=== PATIENT | female | born 1940 | race Caucasian/White ===

== ENCOUNTER → 2018-04-29 | Outpatient (CLI) | payer MEDICARE ==
[~2018-04-29] MED LIST: ACTEMRA400 MG/20 IV; APRISO0.375 GM PO; ARMOUR THYROID60 MG PO; ASPIRIN81 MG PO; BISACODYL5 MG PO; CLONIDINE HCL0.2 MG PO; CRESTOR5 MG PO; GLUCOSAMINE1000 MG PO; HYDROCODON-ACE1 EA12 PO; HYDROXYCHLOROQ200 MG PO; ISOSORBIDE MONO30 MG PO; LASIX20 MG PO; METHYLDOPA250 MG PO; MIRALAX17 GM PO; MUCINEX DM ER1 EACH PO; NITROSTAT0.4 MG SL; NORVASC5 MG PO; OMEGA 3 1,0001 EACH PO; PAXIL20 MG PO; PLAVIX75 MG PO; RANEXA500 MG PO; REGADENOSON 0.4 MG/5 ML SYR IV ONE; VITAMIN D10000 UNIT PO; ZESTRIL20 MG PO
--- NOTE | 2018-04-30 14:14 | Cardiology Report ---
DATE OF STUDY: April 29, 2018 NUCLEAR GATED MYOCARDIAL PERFUSION SCAN Nuclear gated myocardial perfusion scan was performed as per protocol at [facility]. The stress test was supervised by Dr. Valeriano Diaz. I read only the nuclear part of the stress test. This is Lexiscan protocol. Lexiscan was injected 0.4 mg intravenously as a stress agent. IMPRESSION 1. No evidence of ischemia or scar noted. 2. Left ventricular ejection fraction is 60%. No wall-motion abnormality noted. 3. Normal gated myocardial perfusion scan with no ischemia or scar. 4. Normal study. Job#: [id number]
== END ==
LOC: NM 09:52
PROVIDERS: ATTEND Internal Medicine Cardiovascular Disease
DX: I25.119 Atherosclerotic heart disease of native coronary artery with unspecified angina pectoris (principal); R07.9 Chest pain, unspecified; R06.02 Shortness of breath; R94.31 Abnormal electrocardiogram [ECG] [EKG]
CPT/HCPCS: 78452; 93017; A9502

== ENCOUNTER → 2018-07-17 | Outpatient (CLI) | payer MEDICARE ==
[~2018-07-17] MED LIST changes: -REGADENOSON 0.4 MG/5 ML SYR IV ONE
--- NOTE | 2018-07-18 08:22 | Diagnostic Imaging Report ---
Exam: Lumbar spine CT without IV contrast History: Low back pain, prior surgery. Comparison studies: None Technique: Axial images were obtained through the lumbar spine. Coronal and sagittal images reconstructed from the axial data. Dose modulation, iterative reconstruction, and/or weight based adjustment of the mA/kV was utilized to reduce the radiation dose to as low as reasonably achievable. Intravenous contrast: None Findings: Number of non-rib bearing vertebral bodies: 5 Alignment: Lumbar curvature convex to the left centered at L3-L4. Lumbar lordotic curvature is maintained. Soft tissues: Chronic postsurgical changes in the dorsal lumbar and upper sacral soft tissues Paraspinal muscles: Moderate cement atrophy from L4 into the sacrum. Sacroiliac joints: Mild degenerative changes bilaterally with periarticular sclerosis. Defect in the right iliac bone presumably related to previous bone graft arteries. Vertebrae: No acute fractures, infection or neoplasm. Chronic L1 vertebral body compression fracture with plana deformity and bone cement related to previous vertebral body augmentation. There is retropulsion is 8.6 mm retropulsion of the superior vertebral body which results in moderate canal stenosis. The anterior L1 vertebral body is anteriorly displaced by 12 mm. Surgical changes: Posterior instrumented L3-S1 fusion with bilateral transpedicular screws from L3 to L5 and transsacral screws at S1 without evidence of hardware failure or hardware loosening. There is solid posterior lateral osseous fusion. Per provided history there are discectomies at L3-L4 and at L5-S1. Degenerative changes: T11-T12: Mildly degenerated disc with vacuum phenomenon. Disc bulge and facet arthrosis with mild bilateral foraminal stenosis. No significant canal stenosis. T12-L1: Degenerated disc with vacuum phenomenon. Retropulsed L1 vertebral fragment with disc bulge and mild facet arthrosis with moderate canal stenosis and moderate left and mild right foraminal stenosis. L1-L2: Moderately degenerated disc with vacuum phenomenon. Disc bulge with left foraminal disc osteophyte complex and facet arthrosis with mild canal stenosis and severe left and moderate right foraminal stenosis. L2-L3: Moderately degenerated disc with vacuum phenomenon. Disc osteophyte complex and facet arthrosis with moderate to severe bilateral foraminal stenosis. L3-L4: Severely degenerated disc with disc calcification an presumably discectomy changes. Asymmetric left disc osteophyte complex and mild right foraminal stenosis. Patent left foramen. Canal decompressed by laminectomies. L4-L5: Moderately degenerated disc with disc calcification. Patent canal and foramina. L5-S1: Moderately degenerated disc. Left foraminal disc osteophyte complex and hypertrophic changes at the left facet with moderate left foraminal stenosis. Patent canal and right foramen. Additional findings: Scattered calcified atherosclerosis throughout the tortuous abdominal aorta and splenic artery. Punctate splenic calcifications which may be sequela of previous granulomatous infection/information IMPRESSION: 1. Chronic L1 compression fracture status post augmentation with plana deformity and retropulsion which results in moderate canal stenosis. 2. Lumbar curvature convex to the left. 3. Surgical changes with laminotomies and posterior fusion from L3 to S1. 4. Advanced multilevel disc degeneration. 5. Multilevel foraminal stenosis (moderate left at T12-L1, severe left and moderate right at L1-L2, moderate-severe bilaterally at L2-L3 and moderate left L5-S1. Signed by: Dr. Bandar Dawson M.D. on 07/18/2018 8:18 AM
== END ==
LOC: CT 14:03
PROVIDERS: ATTEND Student in an Organized Health Care Education/Training Program
DX: M06.09 Rheumatoid arthritis without rheumatoid factor, multiple sites (principal)
CPT/HCPCS: 72131

== ENCOUNTER → 2020-06-30 | Day surgery (SDC) | payer MEDICARE, OTHER ==
[2020-06-25 13:46] LABS: BASOPHILS % 0.7 % (0.0-1.0); EOSINOPHILS # (AUTO) 0.4 (0.0-0.4); EOSINOPHILS % 6.1 % (0.0-6.0); HEMATOCRIT 33.8 % (34.2-44.1); HEMOGLOBIN 11.3 g/dL (12.0-16.0); LYMPHOCYTES # (AUTO) 2.5 (1.0-3.2); LYMPHOCYTES % 43.2 % (18.0-39.1); MEAN CORPUSCULAR HEMOGLOBIN 29.4 pg (28-32); MEAN CORPUSCULAR HGB CONC 33.4 g/dL (31-35); MONOCYTES # (AUTO) 0.7 (0.2-0.8); MONOCYTES % 11.4 % (4.4-11.3); NEUTROPHILS # (AUTO) 2.3 (2.1-6.9); NEUTROPHILS % 38.4 % (38.7-80.0); PLATELET COUNT 201 x10e3/uL (140-360); RED BLOOD COUNT 3.84 x10e6/uL (3.6-5.1); RED CELL DISTRIBUTION WIDTH 13.2 % (11.7-14.4)
[2020-06-25 14:06] LABS: ALBUMIN 3.7 g/dL (3.5-5.0); ALBUMIN/GLOBULIN RATIO 1.1 (0.8-2.0); CALCIUM 9.4 mg/dL (8.4-10.2); CREATININE, SERUM 1.12 mg/dL (0.57-1.11)
--- NOTE | 2020-06-25 14:39 | Diagnostic Imaging Report ---
EXAMINATION: CHEST 2 VIEWS INDICATION: ^PRE OP COMPARISON: CT scan 07/17/2018 FINDINGS: TUBES and LINES: Right anterior chest cardiac device. LUNGS: Lungs are well inflated. Mild chronic appearing changes in the lungs. No focal consolidation. PLEURA: No pleural effusion or pneumothorax. HEART AND MEDIASTINUM: The cardiomediastinal silhouette is unremarkable. BONES AND SOFT TISSUES: No acute osseous lesion. Soft tissues are unremarkable. Surgical hardware over the lumbar spine. Chronic appearing fracture deformity involving one of the upper lumbar vertebral bodies. UPPER ABDOMEN: No free air under the diaphragm. IMPRESSION: No acute thoracic abnormality. Signed by: Dr. Monster You M.D. on 06/25/2020 2:35 PM
[~2020-06-30] MED LIST changes: +ALENDRONATE SOD70 MG PO; +B&O 60MG R/S 60 MG SUPP PR ONE; +BUMETANIDE0.5 MG PO; +CALCIUM PO; +CEFAZOLIN SOD 1 GM/NS 50ML 100 ML IV ONE; +CENTRUM SILVER1 EAC3 PO; +CEPHALEXIN500 MG PO; +CLOTRIMAZOLE-BE15 GM TOP; +COQ-10100 MG PO; +DEXAMETHASONE SOD PHOS INJ 4 MG/ML VIAL ONE; +FENTANYL CITRATE/PF 100MCG/2 ML INJ ONE; +FLOMAX0.4 MG PO; +HYDRALAZINE HCL 20 MG/ML VIAL ONE; +IOPAMIDOL 300MG/ML 50ML INFUS..BTL IV ONE; +KETAMINE HCL INJ 50 MG/ML 10 ML VIAL ONE; +LABETALOL HCL100 MG PO; +LEVOTHYROXINE75 MCG PO; +LIDOCAINE HCL 2% LOCAL INJ 5 ML SDV VIAL INJ ONE; +ONDANSETRON HCL INJ 2MG/ML 2ML 2 MG/ML VIAL ONE; +PRAVACHOL20 MG PO; +PROLIA60 MG/1 ML IN; +PROPOFOL IV EMULSION 10 MG/ML 20 ML VIAL ONE; +SEVOFLURANE INHAL SOLN 250 ML PEN BTL ONE; +ULTRACET TABLE1 EACH PO; +VERAPAMIL ER120 MG PO; +potassium PO
--- NOTE | 2020-06-30 15:30 | Diagnostic Imaging Report ---
Examination: Fluoroscopic retrograde pyelogram History: Concern for ureteral stricture. Dose: Fluoroscopy time: 21 seconds Air Karma: 7.13 mGy Discussion: Initial kitchen help handyman image demonstrates a cystoscope within the urinary bladder initially the right ureter is cannulated which demonstrates no significant stricture with contrast opacifying the right renal collecting system. Next the left ureter is cannulated which is also negative for high-grade ureteral stricture. Delayed image demonstrates appropriate emptying of contrast from the bilateral renal collecting systems. IMPRESSION: No fluoroscopic evidence of ureteral stricture or obstruction. Please see operative report for further details. Signed by: Russ Roy MD on 06/30/2020 3:27 PM
[2020-06-30 15:35] VITALS: BP 171/91
--- NOTE | 2020-06-30 16:28 | Operative Report ---
DATE OF PROCEDURE: 06/30/2020 SURGEON: Landon Barrett MD PREOPERATIVE DIAGNOSES: Chronic urinary tract infection, microscopic hematuria, bladder lesion. POSTOPERATIVE DIAGNOSES: Urethral stenosis, intrinsic sphincter deficiency, bladder lesion, cystitis cystica, and urethral stenosis. 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 OPERATIONS PERFORMED: Urethral dilatation, cystourethroscopy, bilateral retrograde pyelogram, bladder hydrodistention, multiple bladder biopsies, and fulguration. Examination under anesthesia. FINDINGS: The patient has atrophic vaginitis and introital stenosis allowing only one finger. The patient does not have a cystocele. 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 The bladder showed signs of cystitis cystica. There were two lesions velvety red in her bladder above the trigone and to the right side of the bladder, this were biopsied. Ureteral orifices were normal position with clear efflux was seen bilaterally. Bladder capacity was 300 mL. An x-ray does show hardware in her lumbar spine compatible with Mcconnell rods. Retrograde pyelogram showed no filling defects. No hydroureteronephrosis. PROCEDURE IN DETAIL: With the patient under satisfactory general anesthesia, she was placed in the supine position on the operating table. Legs were placed on stirrups. Genitalia was prepped with pHisoHex, and draped in the usual manner. At this point, urethral dilators were used to size 24. Cystoscopy was performed as above and findings as dictated above. #8 cone-tip ureteral catheter was used to inject contrast media up to both ureters, filling of both kidneys. Findings as dictated above. Further report dictated by the radiologist. At this point, hydrodistention was performed and a capacity of 300 mL was identified with glomerulation, petechiae formation, cascading of blood, has bleeding of the bladder mucosa compatible with interstitial cystitis. Biopsies of the lesions were obtain, these were sent separate from two of the biopsies and other areas of the bladder, and they were labeled to count mast cells. After that, Bugbee electrode was used to fulgurate biopsy sites. After that, a Jerry catheter was placed in the bladder left indwelling. The bladder was irrigated. Clots were removed. B and O suppository were placed in the rectum. The patient was taken to recovery room in satisfactory condition at that point. She was sent home on Cipro and Ditropan. She will be given a large slip bag and overnight bag. Continue all her medications except aspirin and Plavix. She may continue those medicines . She will be seen in the office tomorrow and a Jerry catheter be removed. I discussed the case with her daughter. MD ALEX Gill/KAYLA /[id number]
== END | disposition home or self-care (01) ==
LOC: OR 11:30
PROVIDERS: ATTEND Urology
DX: N30.30 Trigonitis without hematuria (principal); N35.92 Unspecified urethral stricture, female; N36.42 Intrinsic sphincter deficiency (ISD); N30.80 Other cystitis without hematuria; N95.2 Postmenopausal atrophic vaginitis; I25.10 Atherosclerotic heart disease of native coronary artery without angina pectoris; I10 Essential (primary) hypertension; E78.5 Hyperlipidemia, unspecified; K21.9 Gastro-esophageal reflux disease without esophagitis; F41.9 Anxiety disorder, unspecified; Z01.810 Encounter for preprocedural cardiovascular examination; Z01.812 Encounter for preprocedural laboratory examination; Z01.818 Encounter for other preprocedural examination; Z11.59 Encounter for screening for other viral diseases; Z79.02 Long term (current) use of antithrombotics/antiplatelets; Z79.82 Long term (current) use of aspirin; Z87.01 Personal history of pneumonia (recurrent); Z95.0 Presence of cardiac pacemaker
CPT/HCPCS: 36415; 52005; 52214; 71046; 74420; 80053; 85025; 88305; 88313; 93005; C1758 ×2; J0360; J0690; J1100; J2001; J2405; J2704; J3010; Q9967; U0002

== ENCOUNTER → 2022-01-13 | Outpatient (CLI) | payer MEDICARE ==
[~2022-01-13] MED LIST changes: -B&O 60MG R/S 60 MG SUPP PR ONE; -CEFAZOLIN SOD 1 GM/NS 50ML 100 ML IV ONE; -DEXAMETHASONE SOD PHOS INJ 4 MG/ML VIAL ONE; -FENTANYL CITRATE/PF 100MCG/2 ML INJ ONE; -HYDRALAZINE HCL 20 MG/ML VIAL ONE; -IOPAMIDOL 300MG/ML 50ML INFUS..BTL IV ONE; -KETAMINE HCL INJ 50 MG/ML 10 ML VIAL ONE; -LIDOCAINE HCL 2% LOCAL INJ 5 ML SDV VIAL INJ ONE; -ONDANSETRON HCL INJ 2MG/ML 2ML 2 MG/ML VIAL ONE; -PROPOFOL IV EMULSION 10 MG/ML 20 ML VIAL ONE; -SEVOFLURANE INHAL SOLN 250 ML PEN BTL ONE
== END ==
LOC: US 10:11
PROVIDERS: ATTEND Internal Medicine Nephrology
DX: N18.31 Chronic kidney disease, stage 3a (principal)
CPT/HCPCS: 76770; 76857

== ENCOUNTER 2022-08-10 17:56 | Inpatient (IN) | payer MEDICARE ==
[~2022-08-10] VITALS: Ht 160 cm; Wt 80.7 kg
[2022-08-10 18:45] LABS: BASOPHILS % 0.5 % (0.0-1.0); EOSINOPHILS # (AUTO) 0.3 (0.0-0.4); HEMATOCRIT 34.9 % (34.2-44.1); HEMOGLOBIN 11.5 g/dL (12.0-16.0); LYMPHOCYTES # (AUTO) 1.2 (1.0-3.2); LYMPHOCYTES % 14.3 % (18.0-39.1); MEAN CORPUSCULAR HEMOGLOBIN 29.7 pg (28-32); MEAN CORPUSCULAR VOLUME 90.2 fL (81-99); MONOCYTES # (AUTO) 0.6 (0.2-0.8); MONOCYTES % 7.5 % (4.4-11.3); NEUTROPHILS # (AUTO) 6.3 (2.1-6.9); NEUTROPHILS % 74.2 % (38.7-80.0); PLATELET COUNT 244 x10e3/uL (140-360); RED BLOOD COUNT 3.87 x10e6/uL (3.6-5.1); RED CELL DISTRIBUTION WIDTH 12.3 % (11.7-14.4)
[2022-08-10 19:17] LABS: ALBUMIN 4.2 g/dL (3.5-5.0); ALBUMIN/GLOBULIN RATIO 1.1 (0.8-2.0); ANION GAP 18.9 mmol/L (8-16); CALCIUM 9.9 mg/dL (8.4-10.2); CREATININE, SERUM 1.31 mg/dL (0.57-1.11); POTASSIUM 3.9 mmol/L (3.5-5.1)
[2022-08-10] MEDS ORDERED: SODIUM CHLORIDE 0.9% 500ML 500 ML ONE (20:05)
[2022-08-10] MEDS ORDERED: SODIUM CHLORIDE 0.9% 100 ML ONE (20:07)
[2022-08-10] MEDS ORDERED: IOPAMIDOL 370 MG/ML 100 ML INFUS..BTL INJ ONE (20:08)
[2022-08-10 21:27] LABS: CLARITY,URINE CLEAR (CLEAR); COLOR,URINE YELLOW (YELLOW)
[2022-08-10 21:28] LABS: KETONES,URINE NEGATIVE (NEGATIVE); LEUKOCYTE ESTERASE ,URINE NEGATIVE (NEGATIVE); NITRITE,URINE NEGATIVE (NEGATIVE); PROTEIN,URINE DIPSTICK NEGATIVE (NEGATIVE); URINE UROBILINOGEN 0.2 mg/dL (0.2 - 1)
[2022-08-10 21:31] LABS: BACTERIA,URINE RARE /HPF; EPITHELIAL CELLS,URINE MODERATE /LPF; WBC,URINE (MAN) 0-5 /HPF (0-5)
[2022-08-10] MEDS ORDERED: Morphine 4mg INJECTION 4 MG/ML INJ IV PRN (21:45)
[2022-08-10] MEDS ORDERED: SODIUM CHLORIDE 0.9% 1000ML 1,000 ML IV SCH (21:45)
[2022-08-11] VITALS (7 sets, daily range): BP systolic 174–189; BP diastolic 80–99
[2022-08-11] MEDS: SODIUM CHLORIDE 0.9% 1000ML 1,000 ML IV SCH ×3 (03:32→19:45)
[2022-08-11] MEDS ORDERED: LEVETIRACETAM500 MG PO (04:23)
[2022-08-11] MEDS ORDERED: FUROSEMIDE40 MG PO ×2 (04:23→04:32)
[2022-08-11] MEDS ORDERED: ELIQUIS5 MG PO (04:23)
[2022-08-11] MEDS ORDERED: HYDRALAZINE HC100 MG PO (04:23)
[2022-08-11] MEDS ORDERED: URIBEL CAPSULE1 EACH PO (04:23)
[2022-08-11] MEDS ORDERED: METHENAMINE HIPP1 GM PO (04:23)
[2022-08-11] MEDS ORDERED: ULTRAM 50MG50 MG PO (04:23)
[2022-08-11] MEDS ORDERED: LACTULOSE10 GM/151 PO (04:23)
[2022-08-11] MEDS ORDERED: MECLIZINE HCL12.5 MG PO (04:29)
[2022-08-11] MEDS ORDERED: ONDANSETRON ODT4 MG PO (04:30)
[2022-08-11] MEDS ORDERED: MELATONIN3 MG PO (04:31)
[2022-08-11 06:59] LABS: BASOPHILS # (AUTO) 0.1 (0.0-0.1); BASOPHILS % 0.7 % (0.0-1.0); EOSINOPHILS # (AUTO) 0.3 (0.0-0.4); HEMATOCRIT 31.5 % (34.2-44.1); HEMOGLOBIN 10.9 g/dL (12.0-16.0); LYMPHOCYTES # (AUTO) 1.5 (1.0-3.2); MEAN CORPUSCULAR HEMOGLOBIN 29.9 pg (28-32); MEAN CORPUSCULAR HGB CONC 34.6 g/dL (31-35); MEAN CORPUSCULAR VOLUME 86.5 fL (81-99); MONOCYTES # (AUTO) 0.8 (0.2-0.8); MONOCYTES % 9.5 % (4.4-11.3); NEUTROPHILS # (AUTO) 5.7 (2.1-6.9); NEUTROPHILS % 68.6 % (38.7-80.0); PLATELET COUNT 224 x10e3/uL (140-360); RED BLOOD COUNT 3.64 x10e6/uL (3.6-5.1); RED CELL DISTRIBUTION WIDTH 12.4 % (11.7-14.4)
[2022-08-11 07:26] LABS: ALBUMIN 3.6 g/dL (3.5-5.0); ANION GAP 14.5 mmol/L (8-16); CALCIUM 9.1 mg/dL (8.4-10.2); CREATININE, SERUM 1.2 mg/dL (0.57-1.11); POTASSIUM 3.5 mmol/L (3.5-5.1)
[2022-08-11] MEDS ORDERED: SALINE NOSE SPR45 ML INH (11:58)
[2022-08-11] MEDS ORDERED: BENEFIBER144 GM PO (11:58)
[2022-08-11] MEDS ORDERED: ACETAMINOPHEN325 M1 PO (11:58)
[2022-08-11] MEDS ORDERED: AMPICILLIN PO (11:58)
[2022-08-11] MEDS ORDERED: VITAMIN D PO (11:58)
[2022-08-11] MEDS ORDERED: MULTIVITAMIN W PO (11:58)
[2022-08-11] MEDS: DOCUSATE SODIUM 100 MG CAP PO SCH (13:08)
[2022-08-11] MEDS: SENNOSIDES 8.6 MG TAB PO SCH (13:08)
[2022-08-11] MEDS: HYDRALAZINE HCL 20 MG/ML VIAL IV PRN ×2 (15:37→20:49)
[2022-08-11 16:58] LABS: HEMATOCRIT 36.3 % (34.2-44.1)
[2022-08-11] MEDS: ONDANSETRON HCL INJ 2MG/ML 2ML 2 MG/ML VIAL IV PRN (22:59)
[2022-08-12] VITALS (8 sets, daily range): BP systolic 157–189; BP diastolic 80–96
[2022-08-12] MEDS ORDERED: MELATONIN 3 MG TAB PO PRN (01:45)
[2022-08-12] MEDS: SODIUM CHLORIDE 0.9% 1000ML 1,000 ML IV SCH ×3 (03:15→19:15)
[2022-08-12] MEDS ORDERED: BISACODYL 5 MG TAB EC PO ONE ×3 (05:00→06:00)
[2022-08-12] MEDS: HYDRALAZINE HCL 20 MG/ML VIAL IV PRN ×2 (05:45→18:01)
[2022-08-12 06:34] LABS: HEMOGLOBIN 12.1 g/dL (12.0-16.0)
[2022-08-12 06:37] LABS: BASOPHILS % 0.4 % (0.0-1.0); EOSINOPHILS # (AUTO) 0.1 (0.0-0.4); EOSINOPHILS % 1.5 % (0.0-6.0); LYMPHOCYTES # (AUTO) 1.3 (1.0-3.2); LYMPHOCYTES % 13.6 % (18.0-39.1); MEAN CORPUSCULAR HEMOGLOBIN 30.7 pg (28-32); MEAN CORPUSCULAR HGB CONC 34.3 g/dL (31-35); MEAN CORPUSCULAR VOLUME 89.5 fL (81-99); MONOCYTES # (AUTO) 0.7 (0.2-0.8); MONOCYTES % 7.3 % (4.4-11.3); NEUTROPHILS # (AUTO) 7.2 (2.1-6.9); NEUTROPHILS % 76.7 % (38.7-80.0); PLATELET COUNT 230 x10e3/uL (140-360); RED BLOOD COUNT 3.91 x10e6/uL (3.6-5.1); RED CELL DISTRIBUTION WIDTH 12.9 % (11.7-14.4)
[2022-08-12] MEDS: ACETAMINOPHEN 325 MG TAB PO PRN (06:44)
[2022-08-12] MEDS: ONDANSETRON HCL INJ 2MG/ML 2ML 2 MG/ML VIAL IV PRN (06:45)
[2022-08-12 07:20] LABS: ALBUMIN 3.5 g/dL (3.5-5.0); ANION GAP 15.2 mmol/L (8-16); CALCIUM 8.8 mg/dL (8.4-10.2); CREATININE, SERUM 0.98 mg/dL (0.57-1.11); MAGNESIUM 2.2 MG/DL (1.3-2.1); POTASSIUM 4.2 mmol/L (3.5-5.1)
[2022-08-12 07:39] LABS: FERRITIN 114.18 ng/mL (4.63-204.00); THYROID STIMULATING HORMONE 0.89 uIU/mL (0.350-4.940)
[2022-08-12] MEDS ORDERED: PEG (High)/E-LYTE SOLN 4,000 ML BTL PO ONE (08:00)
[2022-08-12] MEDS: DOCUSATE SODIUM 100 MG CAP PO SCH (09:14)
[2022-08-12] MEDS: SENNOSIDES 8.6 MG TAB PO SCH (09:14)
[2022-08-12] MEDS ORDERED: HYOSCYAMINE SULFATE 0.5 MG/ML INJ ONE (16:38)
[2022-08-13] VITALS (8 sets, daily range): BP systolic 147–201; BP diastolic 68–86
[2022-08-13] MEDS: SODIUM CHLORIDE 0.9% 1000ML 1,000 ML IV SCH ×2 (03:15→11:50)
[2022-08-13] MEDS: HYDRALAZINE HCL 20 MG/ML VIAL IV PRN (05:48)
[2022-08-13 06:13] LABS: BASOPHILS % 0.4 % (0.0-1.0); EOSINOPHILS # (AUTO) 0.2 (0.0-0.4); EOSINOPHILS % 2.3 % (0.0-6.0); HEMATOCRIT 36.8 % (34.2-44.1); HEMOGLOBIN 11.7 g/dL (12.0-16.0); LYMPHOCYTES # (AUTO) 1.6 (1.0-3.2); LYMPHOCYTES % 17.5 % (18.0-39.1); MEAN CORPUSCULAR HEMOGLOBIN 29.6 pg (28-32); MEAN CORPUSCULAR HGB CONC 31.8 g/dL (31-35); MEAN CORPUSCULAR VOLUME 93.2 fL (81-99); MONOCYTES # (AUTO) 0.8 (0.2-0.8); MONOCYTES % 8.7 % (4.4-11.3); NEUTROPHILS # (AUTO) 6.4 (2.1-6.9); NEUTROPHILS % 70.7 % (38.7-80.0); PLATELET COUNT 240 x10e3/uL (140-360); RED BLOOD COUNT 3.95 x10e6/uL (3.6-5.1); RED CELL DISTRIBUTION WIDTH 12.4 % (11.7-14.4)
[2022-08-13 06:34] LABS: ALBUMIN 3.4 g/dL (3.5-5.0); ALBUMIN/GLOBULIN RATIO 0.9 (0.8-2.0); ANION GAP 15.1 mmol/L (8-16); CALCIUM 8.9 mg/dL (8.4-10.2); CREATININE, SERUM 0.91 mg/dL (0.57-1.11); POTASSIUM 3.1 mmol/L (3.5-5.1)
[2022-08-13] MEDS: SENNOSIDES 8.6 MG TAB PO SCH (09:18)
[2022-08-13] MEDS: DOCUSATE SODIUM 100 MG CAP PO SCH (09:18)
[2022-08-13] MEDS ORDERED: LABETALOL HCL 100 MG TAB PO PRN (11:15)
[2022-08-13] MEDS ORDERED: APIXABAN 5 MG TABLET PO SCH (11:15)
[2022-08-13] MEDS ORDERED: MECLIZINE HCL 12.5 MG TAB PO PRN (11:15)
[2022-08-13] MEDS ORDERED: POTASSIUM CHLORIDE 20 MEQ TAB CR PO NR (11:45)
[2022-08-13] MEDS: LEVETIRACETAM 500 MG TAB PO SCH ×2 (11:50→22:04)
[2022-08-13] MEDS: ISOSORBIDE MONONITRATE 20 MG TAB PO SCH (11:52)
[2022-08-13] MEDS: HYDRALAZINE HCL 100 MG TABLET PO SCH ×2 (14:49→22:04)
[2022-08-13 16:50] LABS: HEMATOCRIT 36.1 % (34.2-44.1); HEMOGLOBIN 11.6 g/dL (12.0-16.0)
[2022-08-13] MEDS: MELATONIN 3 MG TAB PO SCH (22:03)
[2022-08-13] MEDS: PRAVASTATIN 20 MG TAB PO SCH (22:03)
[2022-08-13] MEDS: PAROXETINE HCL 20 MG TAB PO SCH (22:04)
[2022-08-13] MEDS: TAMSULOSIN HCL 0.4 MG CAP PO SCH (22:04)
[2022-08-14] VITALS (9 sets, daily range): BP systolic 142–188; BP diastolic 72–87
[2022-08-14] MEDS: SODIUM CHLORIDE 0.9% 1000ML 1,000 ML IV SCH ×2 (03:15→03:54)
[2022-08-14 05:21] LABS: HEMATOCRIT 32.9 % (34.2-44.1); HEMOGLOBIN 11.1 g/dL (12.0-16.0); MEAN CORPUSCULAR HEMOGLOBIN 29.6 pg (28-32); MEAN CORPUSCULAR VOLUME 87.7 fL (81-99); RED BLOOD COUNT 3.75 x10e6/uL (3.6-5.1)
[2022-08-14 05:22] LABS: BASOPHILS % 0.4 % (0.0-1.0); EOSINOPHILS # (AUTO) 0.4 (0.0-0.4); EOSINOPHILS % 3.9 % (0.0-6.0); LYMPHOCYTES # (AUTO) 1.7 (1.0-3.2); LYMPHOCYTES % 18.4 % (18.0-39.1); MEAN CORPUSCULAR HGB CONC 33.7 g/dL (31-35); MONOCYTES # (AUTO) 0.7 (0.2-0.8); MONOCYTES % 8.1 % (4.4-11.3); NEUTROPHILS # (AUTO) 6.3 (2.1-6.9); NEUTROPHILS % 68.9 % (38.7-80.0); PLATELET COUNT 206 x10e3/uL (140-360); RED CELL DISTRIBUTION WIDTH 12.8 % (11.7-14.4)
[2022-08-14 05:51] LABS: ANION GAP 15.3 mmol/L (8-16); CALCIUM 8.6 mg/dL (8.4-10.2); CREATININE, SERUM 0.85 mg/dL (0.57-1.11); MAGNESIUM 2.5 MG/DL (1.3-2.1); POTASSIUM 3.3 mmol/L (3.5-5.1)
[2022-08-14] MEDS: HYDRALAZINE HCL 100 MG TABLET PO SCH ×3 (06:07→21:38)
[2022-08-14] MEDS: LEVOTHYROXINE SODIUM 125 MCG TAB PO SCH (06:07)
[2022-08-14 07:10] LABS: CLARITY,URINE CLOUDY (CLEAR); COLOR,URINE GREEN (YELLOW); KETONES,URINE TRACE (NEGATIVE); LEUKOCYTE ESTERASE ,URINE LARGE (NEGATIVE); NITRITE,URINE POSITIVE (NEGATIVE); PROTEIN,URINE DIPSTICK >=300 (NEGATIVE); URINE UROBILINOGEN 1 mg/dL (0.2 - 1)
[2022-08-14 07:37] LABS: BACTERIA,URINE MANY /HPF; EPITHELIAL CELLS,URINE MODERATE /LPF; RBC,URINE >50 /HPF (0-5); WBC,URINE (MAN) >50 /HPF (0-5)
[2022-08-14] MEDS ORDERED: POTASSIUM CHLORIDE 20 MEQ TAB CR PO STA (08:04)
[2022-08-14] MEDS ORDERED: CLOPIDOGREL BISULFATE 75 MG TAB PO SCH (09:00)
[2022-08-14] MEDS: ISOSORBIDE MONONITRATE 20 MG TAB PO SCH (09:33)
[2022-08-14] MEDS: DOCUSATE SODIUM 100 MG CAP PO SCH (09:33)
[2022-08-14] MEDS: SENNOSIDES 8.6 MG TAB PO SCH (09:34)
[2022-08-14] MEDS: FUROSEMIDE 40 MG TAB PO SCH (09:34)
[2022-08-14] MEDS: LEVETIRACETAM 500 MG TAB PO SCH ×2 (09:34→21:38)
[2022-08-14] MEDS: HYDRALAZINE HCL 20 MG/ML VIAL IV PRN (09:51)
[2022-08-14] MEDS ORDERED: POTASSIUM CHLORIDE 20 MEQ TAB CR PO ONE (10:30)
[2022-08-14] MEDS: TAMSULOSIN HCL 0.4 MG CAP PO SCH (21:37)
[2022-08-14] MEDS: MELATONIN 3 MG TAB PO SCH (21:37)
[2022-08-14] MEDS: PRAVASTATIN 20 MG TAB PO SCH (21:37)
[2022-08-14] MEDS: PAROXETINE HCL 20 MG TAB PO SCH (21:38)
[2022-08-15] VITALS (8 sets, daily range): BP systolic 139–176; BP diastolic 76–90
[2022-08-15] MEDS: LEVOTHYROXINE SODIUM 125 MCG TAB PO SCH (05:12)
[2022-08-15] MEDS: HYDRALAZINE HCL 100 MG TABLET PO SCH ×3 (05:13→22:31)
[2022-08-15 06:10] LABS: BASOPHILS # (AUTO) 0.1 (0.0-0.1); BASOPHILS % 0.6 % (0.0-1.0); EOSINOPHILS # (AUTO) 0.4 (0.0-0.4); EOSINOPHILS % 5.5 % (0.0-6.0); HEMATOCRIT 33.8 % (34.2-44.1); HEMOGLOBIN 11.7 g/dL (12.0-16.0); LYMPHOCYTES # (AUTO) 1.6 (1.0-3.2); LYMPHOCYTES % 19.7 % (18.0-39.1); MEAN CORPUSCULAR HEMOGLOBIN 30.4 pg (28-32); MEAN CORPUSCULAR HGB CONC 34.6 g/dL (31-35); MEAN CORPUSCULAR VOLUME 87.8 fL (81-99); MONOCYTES # (AUTO) 0.7 (0.2-0.8); MONOCYTES % 8.7 % (4.4-11.3); NEUTROPHILS # (AUTO) 5.1 (2.1-6.9); NEUTROPHILS % 65.1 % (38.7-80.0); PLATELET COUNT 220 x10e3/uL (140-360); RED BLOOD COUNT 3.85 x10e6/uL (3.6-5.1); RED CELL DISTRIBUTION WIDTH 12.8 % (11.7-14.4)
[2022-08-15 06:36] LABS: ANION GAP 12.9 mmol/L (8-16); CALCIUM 8.6 mg/dL (8.4-10.2); CREATININE, SERUM 0.87 mg/dL (0.57-1.11); MAGNESIUM 1.9 MG/DL (1.3-2.1); POTASSIUM 3.9 mmol/L (3.5-5.1)
[2022-08-15] MEDS: ISOSORBIDE MONONITRATE 20 MG TAB PO SCH (09:38)
[2022-08-15] MEDS: DOCUSATE SODIUM 100 MG CAP PO SCH (09:38)
[2022-08-15] MEDS: SENNOSIDES 8.6 MG TAB PO SCH (09:38)
[2022-08-15] MEDS: LEVETIRACETAM 500 MG TAB PO SCH ×2 (09:38→20:48)
[2022-08-15] MEDS: FUROSEMIDE 40 MG TAB PO SCH (09:39)
[2022-08-15] MEDS: MELATONIN 3 MG TAB PO SCH (20:48)
[2022-08-15] MEDS: TAMSULOSIN HCL 0.4 MG CAP PO SCH (20:48)
[2022-08-15] MEDS: PRAVASTATIN 20 MG TAB PO SCH (20:48)
[2022-08-15] MEDS: PAROXETINE HCL 20 MG TAB PO SCH (20:48)
[2022-08-16] VITALS (8 sets, daily range): BP systolic 133–154; BP diastolic 76–89
[2022-08-16] MEDS: LEVOTHYROXINE SODIUM 125 MCG TAB PO SCH (05:54)
[2022-08-16] MEDS: HYDRALAZINE HCL 100 MG TABLET PO SCH ×3 (05:54→22:11)
[2022-08-16] MEDS: FUROSEMIDE 40 MG TAB PO SCH (09:11)
[2022-08-16] MEDS: ISOSORBIDE MONONITRATE 20 MG TAB PO SCH (09:11)
[2022-08-16] MEDS: DOCUSATE SODIUM 100 MG CAP PO SCH (09:11)
[2022-08-16] MEDS: LEVETIRACETAM 500 MG TAB PO SCH ×2 (09:11→20:52)
[2022-08-16] MEDS: SENNOSIDES 8.6 MG TAB PO SCH (09:11)
[2022-08-16] MEDS: TAMSULOSIN HCL 0.4 MG CAP PO SCH (20:51)
[2022-08-16] MEDS: PAROXETINE HCL 20 MG TAB PO SCH (20:52)
[2022-08-16] MEDS: PRAVASTATIN 20 MG TAB PO SCH (20:52)
[2022-08-16] MEDS ORDERED: SODIUM CHLORIDE 0.9% 250ML 250 ML ONE (21:00)
[2022-08-16] MEDS: MELATONIN 3 MG TAB PO SCH (22:11)
[2022-08-17] VITALS (7 sets, daily range): BP systolic 130–171; BP diastolic 80–88
[2022-08-17] MEDS: LEVOTHYROXINE SODIUM 125 MCG TAB PO SCH (02:51)
[2022-08-17] MEDS: HYDRALAZINE HCL 100 MG TABLET PO SCH ×3 (02:51→21:09)
[2022-08-17 06:06] LABS: BASOPHILS # (AUTO) 0.1 (0.0-0.1); BASOPHILS % 0.7 % (0.0-1.0); EOSINOPHILS # (AUTO) 0.3 (0.0-0.4); EOSINOPHILS % 4.3 % (0.0-6.0); HEMATOCRIT 37.1 % (34.2-44.1); HEMOGLOBIN 12.1 g/dL (12.0-16.0); LYMPHOCYTES # (AUTO) 1.5 (1.0-3.2); MEAN CORPUSCULAR HEMOGLOBIN 29.4 pg (28-32); MEAN CORPUSCULAR HGB CONC 32.6 g/dL (31-35); MEAN CORPUSCULAR VOLUME 90.3 fL (81-99); MONOCYTES # (AUTO) 0.8 (0.2-0.8); MONOCYTES % 10.4 % (4.4-11.3); NEUTROPHILS # (AUTO) 4.7 (2.1-6.9); NEUTROPHILS % 64.2 % (38.7-80.0); PLATELET COUNT 234 x10e3/uL (140-360); RED BLOOD COUNT 4.11 x10e6/uL (3.6-5.1); RED CELL DISTRIBUTION WIDTH 12.3 % (11.7-14.4)
[2022-08-17 06:25] LABS: ALBUMIN 3.4 g/dL (3.5-5.0); ALBUMIN/GLOBULIN RATIO 0.9 (0.8-2.0); ANION GAP 16.5 mmol/L (8-16); CALCIUM 8.8 mg/dL (8.4-10.2); CREATININE, SERUM 1.05 mg/dL (0.57-1.11); MAGNESIUM 1.7 MG/DL (1.3-2.1); POTASSIUM 3.5 mmol/L (3.5-5.1)
[2022-08-17] MEDS: FUROSEMIDE 40 MG TAB PO SCH (08:09)
[2022-08-17] MEDS: ISOSORBIDE MONONITRATE 20 MG TAB PO SCH (08:09)
[2022-08-17] MEDS: SENNOSIDES 8.6 MG TAB PO SCH (08:09)
[2022-08-17] MEDS: DOCUSATE SODIUM 100 MG CAP PO SCH (08:09)
[2022-08-17] MEDS: LEVETIRACETAM 500 MG TAB PO SCH ×2 (08:09→21:09)
[2022-08-17] MEDS ORDERED: LIDOCAINE JELLY 2% 10ML URO-JET ONE (14:03)
[2022-08-17] MEDS ORDERED: BUPIVACAINE HC 0.75% PF 10ML VIAL INJ ONE (14:03)
[2022-08-17] MEDS ORDERED: BUPIVACAINE 0.5%/EPI 30 ML SDV INJ ONE (14:04)
[2022-08-17] MEDS ORDERED: LIDOCAINE HCL 1% LOCAL INJ 20 ML VIAL ONE (14:04)
[2022-08-17] MEDS: PRAVASTATIN 20 MG TAB PO SCH (21:09)
[2022-08-17] MEDS: TAMSULOSIN HCL 0.4 MG CAP PO SCH (21:09)
[2022-08-17] MEDS: PAROXETINE HCL 20 MG TAB PO SCH (21:10)
[2022-08-17] MEDS ORDERED: CEPACOL SORE THROAT LOZENGES PO PRN (22:15)
[2022-08-17] MEDS: MELATONIN 3 MG TAB PO SCH (22:53)
[2022-08-17] MEDS: TRAMADOL HCL 50 MG TAB PO PRN (22:54)
[2022-08-18] MEDS: TRAMADOL HCL 50 MG TAB PO PRN ×2 (01:35→06:34)
[2022-08-18 01:56] VITALS: BP 122/63
[2022-08-18 05:54] VITALS: BP 108/63
[2022-08-18 05:54] LABS: BASOPHILS % 0.4 % (0.0-1.0); EOSINOPHILS # (AUTO) 0.2 (0.0-0.4); EOSINOPHILS % 1.7 % (0.0-6.0); HEMATOCRIT 33.8 % (34.2-44.1); HEMOGLOBIN 10.9 g/dL (12.0-16.0); LYMPHOCYTES # (AUTO) 1.3 (1.0-3.2); LYMPHOCYTES % 13.5 % (18.0-39.1); MEAN CORPUSCULAR HEMOGLOBIN 29.8 pg (28-32); MEAN CORPUSCULAR HGB CONC 32.2 g/dL (31-35); MEAN CORPUSCULAR VOLUME 92.3 fL (81-99); MONOCYTES # (AUTO) 0.9 (0.2-0.8); MONOCYTES % 9.9 % (4.4-11.3); NEUTROPHILS # (AUTO) 6.8 (2.1-6.9); NEUTROPHILS % 74.1 % (38.7-80.0); PLATELET COUNT 221 x10e3/uL (140-360); RED BLOOD COUNT 3.66 x10e6/uL (3.6-5.1); RED CELL DISTRIBUTION WIDTH 12.6 % (11.7-14.4)
[2022-08-18] MEDS: HYDRALAZINE HCL 100 MG TABLET PO SCH ×3 (06:00→21:04)
[2022-08-18 06:15] LABS: ALBUMIN 3.2 g/dL (3.5-5.0); ANION GAP 14.7 mmol/L (8-16); CALCIUM 8.3 mg/dL (8.4-10.2); CREATININE, SERUM 1.26 mg/dL (0.57-1.11); MAGNESIUM 1.7 MG/DL (1.3-2.1); POTASSIUM 3.7 mmol/L (3.5-5.1)
[2022-08-18] MEDS: LEVOTHYROXINE SODIUM 125 MCG TAB PO SCH (06:33)
[2022-08-18 08:52] VITALS: BP 128/68
[2022-08-18] MEDS ORDERED: PHENAZOPYRIDINE HCL 100 MG TAB PO PRN (09:30)
[2022-08-18] MEDS: LEVETIRACETAM 500 MG TAB PO SCH ×2 (10:19→21:04)
[2022-08-18] MEDS: DOCUSATE SODIUM 100 MG CAP PO SCH (10:19)
[2022-08-18] MEDS: SENNOSIDES 8.6 MG TAB PO SCH (10:20)
[2022-08-18] MEDS: ISOSORBIDE MONONITRATE 20 MG TAB PO SCH (10:20)
[2022-08-18] MEDS: FUROSEMIDE 40 MG TAB PO SCH (10:20)
[2022-08-18 12:21] VITALS: BP 120/72
[2022-08-18] MEDS: SODIUM CHLORIDE 0.9% 1000ML 1,000 ML IV SCH (12:21)
[2022-08-18 21:04] VITALS: BP 121/69
[2022-08-18] MEDS: PRAVASTATIN 20 MG TAB PO SCH (21:04)
[2022-08-18] MEDS: PAROXETINE HCL 20 MG TAB PO SCH (21:04)
[2022-08-18] MEDS: TAMSULOSIN HCL 0.4 MG CAP PO SCH (21:04)
[2022-08-18 21:10] VITALS: BP 121/69
[2022-08-18] MEDS: MELATONIN 3 MG TAB PO SCH (22:28)
[2022-08-19] VITALS (9 sets, daily range): BP systolic 125–139; BP diastolic 65–74
[2022-08-19] MEDS: SODIUM CHLORIDE 0.9% 1000ML 1,000 ML IV SCH ×2 (04:33→19:10)
[2022-08-19] MEDS: HYDRALAZINE HCL 100 MG TABLET PO SCH ×3 (06:24→21:19)
[2022-08-19] MEDS: LEVOTHYROXINE SODIUM 125 MCG TAB PO SCH (06:24)
[2022-08-19 07:13] LABS: BASOPHILS # (AUTO) 0.1 (0.0-0.1); BASOPHILS % 0.6 % (0.0-1.0); EOSINOPHILS # (AUTO) 0.3 (0.0-0.4); EOSINOPHILS % 3.5 % (0.0-6.0); HEMATOCRIT 29.7 % (34.2-44.1); LYMPHOCYTES # (AUTO) 1.5 (1.0-3.2); LYMPHOCYTES % 16.3 % (18.0-39.1); MEAN CORPUSCULAR HEMOGLOBIN 29.8 pg (28-32); MEAN CORPUSCULAR HGB CONC 33.7 g/dL (31-35); MEAN CORPUSCULAR VOLUME 88.4 fL (81-99); MONOCYTES # (AUTO) 0.9 (0.2-0.8); MONOCYTES % 10.3 % (4.4-11.3); NEUTROPHILS # (AUTO) 6.2 (2.1-6.9); NEUTROPHILS % 68.7 % (38.7-80.0); PLATELET COUNT 175 x10e3/uL (140-360); RED BLOOD COUNT 3.36 x10e6/uL (3.6-5.1)
[2022-08-19 07:46] LABS: ALBUMIN 2.8 g/dL (3.5-5.0); ALBUMIN/GLOBULIN RATIO 0.9 (0.8-2.0); ANION GAP 12.6 mmol/L (8-16); CALCIUM 8.1 mg/dL (8.4-10.2); CREATININE, SERUM 0.99 mg/dL (0.57-1.11); MAGNESIUM 1.8 MG/DL (1.3-2.1); POTASSIUM 3.6 mmol/L (3.5-5.1)
[2022-08-19] MEDS: LEVETIRACETAM 500 MG TAB PO SCH ×2 (09:00→21:20)
[2022-08-19] MEDS: FUROSEMIDE 40 MG TAB PO SCH (09:45)
[2022-08-19] MEDS: DOCUSATE SODIUM 100 MG CAP PO SCH (09:45)
[2022-08-19] MEDS: SENNOSIDES 8.6 MG TAB PO SCH (09:46)
[2022-08-19] MEDS: ISOSORBIDE MONONITRATE 20 MG TAB PO SCH (09:46)
[2022-08-19] MEDS: TAMSULOSIN HCL 0.4 MG CAP PO SCH (21:19)
[2022-08-19] MEDS: ACETAMINOPHEN 325 MG TAB PO PRN (21:19)
[2022-08-19] MEDS: PAROXETINE HCL 20 MG TAB PO SCH (21:19)
[2022-08-19] MEDS: MELATONIN 3 MG TAB PO SCH (21:20)
[2022-08-19] MEDS: PRAVASTATIN 20 MG TAB PO SCH (21:20)
[2022-08-20 04:00] VITALS: BP 139/71
[2022-08-20] MEDS: LEVOTHYROXINE SODIUM 125 MCG TAB PO SCH (06:10)
[2022-08-20] MEDS: SODIUM CHLORIDE 0.9% 1000ML 1,000 ML IV SCH (06:10)
[2022-08-20] MEDS: HYDRALAZINE HCL 100 MG TABLET PO SCH ×3 (06:10→20:14)
[2022-08-20 08:21] VITALS: BP 181/76
[2022-08-20] MEDS: HYDRALAZINE HCL 20 MG/ML VIAL IV PRN (08:53)
[2022-08-20 08:55] VITALS: BP 181/76
[2022-08-20] MEDS: LEVETIRACETAM 500 MG TAB PO SCH ×2 (09:00→20:14)
[2022-08-20] MEDS: FUROSEMIDE 40 MG TAB PO SCH (09:16)
[2022-08-20] MEDS: DOCUSATE SODIUM 100 MG CAP PO SCH (09:16)
[2022-08-20] MEDS: SENNOSIDES 8.6 MG TAB PO SCH (09:16)
[2022-08-20] MEDS: ISOSORBIDE MONONITRATE 20 MG TAB PO SCH (09:17)
[2022-08-20 12:22] VITALS: BP 118/59
[2022-08-20] MEDS: TRAMADOL HCL 50 MG TAB PO PRN (14:26)
[2022-08-20] MEDS: ONDANSETRON HCL INJ 2MG/ML 2ML 2 MG/ML VIAL IV PRN (14:31)
[2022-08-20 16:14] VITALS: BP 113/58
[2022-08-20 20:00] VITALS: BP 111/59
[2022-08-20] MEDS: MELATONIN 3 MG TAB PO SCH (20:14)
[2022-08-20] MEDS: PAROXETINE HCL 20 MG TAB PO SCH (20:14)
[2022-08-20] MEDS: PRAVASTATIN 20 MG TAB PO SCH (20:14)
[2022-08-20] MEDS: TAMSULOSIN HCL 0.4 MG CAP PO SCH (20:14)
[2022-08-21] VITALS (8 sets, daily range): BP systolic 113–163; BP diastolic 66–80
[2022-08-21] MEDS: SODIUM CHLORIDE 0.9% 1000ML 1,000 ML IV SCH ×2 (04:40→17:24)
[2022-08-21] MEDS: HYDRALAZINE HCL 100 MG TABLET PO SCH ×3 (05:43→21:07)
[2022-08-21] MEDS: LEVOTHYROXINE SODIUM 125 MCG TAB PO SCH (05:43)
[2022-08-21] MEDS: DOCUSATE SODIUM 100 MG CAP PO SCH (09:14)
[2022-08-21] MEDS: SENNOSIDES 8.6 MG TAB PO SCH (09:14)
[2022-08-21] MEDS: FUROSEMIDE 40 MG TAB PO SCH (09:15)
[2022-08-21] MEDS: ISOSORBIDE MONONITRATE 20 MG TAB PO SCH (09:15)
[2022-08-21] MEDS: LEVETIRACETAM 500 MG TAB PO SCH ×2 (09:15→21:06)
[2022-08-21] MEDS ORDERED: SEVOFLURANE INHAL SOLN 250 ML PEN BTL INH ONE (13:58)
[2022-08-21] MEDS ORDERED: ROCURONIUM BROMIDE 10 MG/ML 5ML VIAL IV ONE (13:58)
[2022-08-21] MEDS ORDERED: NEOSTIGMINE 1 MG/ML 10ML VIAL IV ONE (13:58)
[2022-08-21] MEDS ORDERED: PROPOFOL IV EMULSION 10 MG/ML 20 ML VIAL IV ONE (13:58)
[2022-08-21] MEDS ORDERED: GLYCOPYRROLATE INJ 0.2 MG/ML VIAL IV ONE (13:58)
[2022-08-21] MEDS ORDERED: POVIDONE IODINE 0.05% 0.05 % ML PO ONE (13:58)
[2022-08-21] MEDS ORDERED: ONDANSETRON HCL INJ 2MG/ML 2ML 2 MG/ML VIAL IV ONE (13:58)
[2022-08-21] MEDS ORDERED: EPHEDRINE SULFATE INJ 50 MG/ML VIAL IV ONE (13:58)
[2022-08-21] MEDS ORDERED: LIDOCAINE HCL 2% LOCAL INJ 5 ML SDV VIAL INJ ONE (13:58)
[2022-08-21] MEDS: PAROXETINE HCL 20 MG TAB PO SCH (21:05)
[2022-08-21] MEDS: TAMSULOSIN HCL 0.4 MG CAP PO SCH (21:05)
[2022-08-21] MEDS: PRAVASTATIN 20 MG TAB PO SCH (21:16)
[2022-08-21] MEDS: MELATONIN 3 MG TAB PO SCH (22:18)
[2022-08-22 01:51] VITALS: BP 138/68
[2022-08-22] MEDS: HYDRALAZINE HCL 100 MG TABLET PO SCH ×4 (05:36→22:09)
[2022-08-22] MEDS: LACTULOSE SYRUP 20 GM/30 ML UDC PO PRN ×2 (05:37→16:46)
[2022-08-22] MEDS: SODIUM CHLORIDE 0.9% 1000ML 1,000 ML IV SCH ×2 (05:38→19:32)
[2022-08-22 05:43] VITALS: BP 162/81
[2022-08-22] MEDS: LEVOTHYROXINE SODIUM 125 MCG TAB PO SCH (05:45)
[2022-08-22 08:58] VITALS: BP 164/82
[2022-08-22] MEDS: LEVETIRACETAM 500 MG TAB PO SCH ×2 (09:35→22:09)
[2022-08-22] MEDS: ISOSORBIDE MONONITRATE 20 MG TAB PO SCH (09:35)
[2022-08-22] MEDS: FUROSEMIDE 40 MG TAB PO SCH (09:35)
[2022-08-22] MEDS: DOCUSATE SODIUM 100 MG CAP PO SCH (09:36)
[2022-08-22] MEDS: SENNOSIDES 8.6 MG TAB PO SCH (09:37)
[2022-08-22] MEDS: APIXABAN 5 MG TABLET PO SCH ×2 (12:32→16:41)
[2022-08-22 12:43] VITALS: BP 119/69
[2022-08-22] MEDS: ONDANSETRON HCL INJ 2MG/ML 2ML 2 MG/ML VIAL IV PRN (16:41)
[2022-08-22 16:49] VITALS: BP 129/77
[2022-08-22 21:00] VITALS: BP 145/75
[2022-08-22] MEDS: TAMSULOSIN HCL 0.4 MG CAP PO SCH (21:32)
[2022-08-22] MEDS: PAROXETINE HCL 20 MG TAB PO SCH (21:32)
[2022-08-22] MEDS: PRAVASTATIN 20 MG TAB PO SCH (22:09)
[2022-08-22] MEDS: MELATONIN 3 MG TAB PO SCH (22:46)
[2022-08-23 01:21] VITALS: BP 153/81
[2022-08-23 04:46] VITALS: BP 145/77
[2022-08-23 06:16] LABS: BASOPHILS % 0.5 % (0.0-1.0); EOSINOPHILS # (AUTO) 0.4 (0.0-0.4); EOSINOPHILS % 4.9 % (0.0-6.0); HEMATOCRIT 30.4 % (34.2-44.1); HEMOGLOBIN 9.9 g/dL (12.0-16.0); LYMPHOCYTES # (AUTO) 1.5 (1.0-3.2); LYMPHOCYTES % 19.6 % (18.0-39.1); MEAN CORPUSCULAR HEMOGLOBIN 29.8 pg (28-32); MEAN CORPUSCULAR HGB CONC 32.6 g/dL (31-35); MEAN CORPUSCULAR VOLUME 91.6 fL (81-99); MONOCYTES # (AUTO) 0.7 (0.2-0.8); MONOCYTES % 9.1 % (4.4-11.3); NEUTROPHILS # (AUTO) 4.8 (2.1-6.9); NEUTROPHILS % 65.5 % (38.7-80.0); PLATELET COUNT 209 x10e3/uL (140-360); RED BLOOD COUNT 3.32 x10e6/uL (3.6-5.1); RED CELL DISTRIBUTION WIDTH 11.9 % (11.7-14.4)
[2022-08-23] MEDS: LEVOTHYROXINE SODIUM 125 MCG TAB PO SCH (06:25)
[2022-08-23] MEDS: SODIUM CHLORIDE 0.9% 1000ML 1,000 ML IV SCH (06:25)
[2022-08-23 06:47] LABS: ALBUMIN 2.9 g/dL (3.5-5.0); ANION GAP 12.4 mmol/L (8-16); CALCIUM 8.4 mg/dL (8.4-10.2); CREATININE, SERUM 0.86 mg/dL (0.57-1.11); POTASSIUM 3.4 mmol/L (3.5-5.1)
[2022-08-23 08:20] VITALS: BP 138/67
[2022-08-23] MEDS: LEVETIRACETAM 500 MG TAB PO SCH (08:52)
[2022-08-23] MEDS: APIXABAN 5 MG TABLET PO SCH (08:53)
[2022-08-23] MEDS: FUROSEMIDE 40 MG TAB PO SCH (08:53)
[2022-08-23] MEDS: ISOSORBIDE MONONITRATE 20 MG TAB PO SCH (08:53)
[2022-08-23] MEDS: DOCUSATE SODIUM 100 MG CAP PO SCH (08:53)
[2022-08-23] MEDS: SENNOSIDES 8.6 MG TAB PO SCH (08:54)
[2022-08-23 08:57] VITALS: BP 138/67
[2022-08-23] MEDS ORDERED: PROPOFOL IV EMULSION 10 MG/ML 20 ML VIAL IV ONE (09:39)
[2022-08-23] MEDS ORDERED: POVIDONE IODINE 0.05% 0.05 % ML PO ONE (09:39)
[2022-08-23] MEDS ORDERED: SENOKOT8.6 MG PO (09:46)
[2022-08-23] MEDS ORDERED: LACTULOSE20 GM/30 M PO (09:46)
[2022-08-23] MEDS ORDERED: ULTRAM 50MG50 MG PO (09:46)
[2022-08-23] MEDS ORDERED: DOCUSATE SODIU100 MG PO (09:46)
[2022-08-23] MEDS ORDERED: POTASSIUM CHLORIDE 10MEQ EA PO ONE (10:00)
[2022-08-23] MEDS ORDERED: PYRIDIUM200 MG PO (12:06)
== END 2022-08-23 11:49 | disposition home or self-care (01) | DRG 348 ==
LOC: ER 18:03 → ERHOLD 21:35 → MED/SURG3 08-11 02:52
PROVIDERS: ADMIT Internal Medicine; ATTEND Internal Medicine
PROC: 0DBQ8ZX Excision of Anus, Via Natural or Artificial Opening Endoscopic, Diagnostic (ICD-10-PCS; 2022-08-12)
PROC: 0DBP7ZZ Excision of Rectum, Via Natural or Artificial Opening (ICD-10-PCS; principal; 2022-08-18)
DX: K62.3 Rectal prolapse (principal); K51.90 Ulcerative colitis, unspecified, without complications; N30.00 Acute cystitis without hematuria; K64.8 Other hemorrhoids; I12.9 Hypertensive chronic kidney disease with stage 1 through stage 4 chronic kidney disease, or unspecified chronic kidney disease; N18.31 Chronic kidney disease, stage 3a; I48.0 Paroxysmal atrial fibrillation; I25.10 Atherosclerotic heart disease of native coronary artery without angina pectoris; G40.909 Epilepsy, unspecified, not intractable, without status epilepticus; D64.9 Anemia, unspecified; R53.81 Other malaise; E66.9 Obesity, unspecified; E78.5 Hyperlipidemia, unspecified; Z68.31 Body mass index [BMI] 31.0-31.9, adult; H81.10 Benign paroxysmal vertigo, unspecified ear; B96.20 Unspecified Escherichia coli [E. coli] as the cause of diseases classified elsewhere; N39.46 Mixed incontinence; R33.9 Retention of urine, unspecified; N30.10 Interstitial cystitis (chronic) without hematuria; K80.20 Calculus of gallbladder without cholecystitis without obstruction; E83.41 Hypermagnesemia; E83.51 Hypocalcemia; Z95.0 Presence of cardiac pacemaker; K62.89 Other specified diseases of anus and rectum
CPT/HCPCS: 36415; 45380; 51700; 74177; 74270; 80048; 80053; 81001; 82607; 82728; 82746; 82948; 83540; 83690; 83735; 84443; 84466; 85014; 85018; 85025; 85045; 87086; 87186; 88304; 88305; 93005; 99284; J0360; J0692; J0694; J0696; J1980; J2001; J2270; J2405; J2710; J7030; J7040; J7050; Q9967

== ENCOUNTER 2024-05-25 14:41 | Inpatient (IN) | payer MEDICARE ==
[~2024-05-25] VITALS: Ht 160 cm; Wt 77.1 kg
[~2024-05-25 14:41] MED LIST changes: +ACETAMINOPHEN325 M1 PO; +AMPICILLIN PO; +BENEFIBER144 GM PO; +DOCUSATE SODIU100 MG PO; +ELIQUIS5 MG PO; +FUROSEMIDE40 MG PO; +HYDRALAZINE HC100 MG PO; +LACTULOSE10 GM/151 PO; +LACTULOSE20 GM/30 M PO; +LEVETIRACETAM500 MG PO; +LISINOPRIL10 MG PO; +MECLIZINE HCL12.5 MG PO; +MELATONIN3 MG PO; +METHENAMINE HIPP1 GM PO; +MORPHINE; +MULTIVITAMIN W PO; +ONDANSETRON ODT4 MG PO; +PYRIDIUM200 MG PO; +SALINE NOSE SPR45 ML INH; +SENOKOT8.6 MG PO; +ULTRAM 50MG50 MG PO; +URIBEL CAPSULE1 EACH PO; +VITAMIN D PO
[2024-05-25] MEDS: ONDANSETRON HCL INJ 2MG/ML 2ML 2 MG/ML VIAL IV STA (16:06)
[2024-05-25 16:25] LABS: BASOPHILS # (AUTO) 0.1 (0.0-0.1); BASOPHILS % 0.4 % (0.0-1.0); EOSINOPHILS # (AUTO) 0.1 (0.0-0.4); EOSINOPHILS % 0.7 % (0.0-6.0); HEMATOCRIT 41.6 % (34.2-44.1); HEMOGLOBIN 14.1 g/dL (12.0-16.0); LYMPHOCYTES # (AUTO) 0.9 (1.0-3.2); LYMPHOCYTES % 5.1 % (18.0-39.1); MEAN CORPUSCULAR HEMOGLOBIN 29.9 pg (28-32); MEAN CORPUSCULAR HGB CONC 33.9 g/dL (31-35); MEAN CORPUSCULAR VOLUME 88.3 fL (81-99); MONOCYTES # (AUTO) 0.9 (0.2-0.8); NEUTROPHILS # (AUTO) 16.3 (2.1-6.9); NEUTROPHILS % 88.3 % (38.7-80.0); PLATELET COUNT 270 x10e3/uL (140-360); RED BLOOD COUNT 4.71 x10e6/uL (3.6-5.1); RED CELL DISTRIBUTION WIDTH 12.5 % (11.7-14.4); WHITE BLOOD COUNT 18.41 x10e3/uL (4.8-10.8)
[2024-05-25 16:38] LABS: ALBUMIN 3.9 g/dL (3.5-5.0); ALBUMIN/GLOBULIN RATIO 1.1 (0.8-2.0); BILIRUBIN,TOTAL 0.7 mg/dL (0.2-1.2); CREATININE, SERUM 1.33 mg/dL (0.57-1.11); POTASSIUM 3.7 mmol/L (3.5-5.1); TOTAL PROTEIN 7.3 g/dL (6.5-8.1)
[2024-05-25 16:41] LABS: CALCIUM 10.2 mg/dL (8.4-10.2)
[2024-05-25 16:46] LABS: TROPONIN I 0.044 ng/mL (0-0.300)
[2024-05-25] MEDS ORDERED: IOPAMIDOL 370 MG/ML 100 ML INFUS..BTL INJ ONE ×2 (16:53→20:51)
[2024-05-25 16:55] LABS: ANION GAP 15.7 mmol/L (8-16)
[2024-05-25] MEDS: SODIUM CHLORIDE 0.9% 500ML 500 ML IV STA (17:15)
[2024-05-25 17:28] VITALS: TEMP 97.1
[2024-05-25 18:32] VITALS: PULSE 76; RESP 20; O2SAT 98
[2024-05-25] MEDS: HYDRALAZINE HCL 20 MG/ML VIAL IV PRN (20:36)
[2024-05-25 21:08] VITALS: PULSE 88; RESP 20
[2024-05-25 21:58] VITALS: BP 179/93; PULSE 89; RESP 18; TEMP 99.2; O2SAT 96
[2024-05-25 22:20] VITALS: BP 179/93; PULSE 89; RESP 18; TEMP 99.2; O2SAT 96
[2024-05-25 22:23] VITALS: BP 179/93; PULSE 89; RESP 18; TEMP 99.2; O2SAT 96
[2024-05-25] MEDS: MELATONIN 5 MG TABLET PO PRN (22:46)
[2024-05-25] MEDS: ACETAMINOPHEN 325 MG TAB PO PRN (22:47)
[2024-05-26] VITALS (11 sets, daily range): BP systolic 168–198; BP diastolic 83–95; PULSE 74–87; RESP 17–21; TEMP 97.7–99.7; O2SAT 94–98
[2024-05-26 06:22] LABS: BASOPHILS # (AUTO) 0.1 (0.0-0.1); BASOPHILS % 0.2 % (0.0-1.0); HEMATOCRIT 34.9 % (34.2-44.1); HEMOGLOBIN 12.2 g/dL (12.0-16.0); LYMPHOCYTES # (AUTO) 1.2 (1.0-3.2); LYMPHOCYTES % 4.9 % (18.0-39.1); MEAN CORPUSCULAR HEMOGLOBIN 30.3 pg (28-32); MEAN CORPUSCULAR VOLUME 86.6 fL (81-99); MONOCYTES # (AUTO) 1.6 (0.2-0.8); MONOCYTES % 6.7 % (4.4-11.3); NEUTROPHILS # (AUTO) 20.3 (2.1-6.9); NEUTROPHILS % 87.3 % (38.7-80.0); PLATELET COUNT 220 x10e3/uL (140-360); RED BLOOD COUNT 4.03 x10e6/uL (3.6-5.1); RED CELL DISTRIBUTION WIDTH 12.6 % (11.7-14.4); WHITE BLOOD COUNT 23.25 x10e3/uL (4.8-10.8)
[2024-05-26 06:52] LABS: ANION GAP 13.7 mmol/L (8-16); CALCIUM 8.8 mg/dL (8.4-10.2); CREATININE, SERUM 1.13 mg/dL (0.57-1.11); POTASSIUM 3.7 mmol/L (3.5-5.1)
[2024-05-26 08:39] LABS: BAND NEUTROPHILS % (MANUAL) 1 %; LYMPHOCYTES % (MANUAL) 7 % (19-48); MONOCYTES % (MANUAL) 2 % (3.4-9.0); NEUTROPHILS % (MANUAL) 90 % (40-74)
[2024-05-26 08:40] LABS: PLATELET ESTIMATE ADEQUATE; PLATELET MORPHOLOGY COMMENT NORMAL; RBC MORPHOLOGY COMMENT NORMAL
[2024-05-26 10:12] LABS: BILIRUBIN,URINE NEGATIVE (NEGATIVE); CLARITY,URINE CLEAR (CLEAR); COLOR,URINE AMBER (YELLOW); GLUCOSE, URINE NEGATIVE (NEGATIVE); KETONES,URINE NEGATIVE (NEGATIVE); LEUKOCYTE ESTERASE ,URINE NEGATIVE (NEGATIVE); PH,URINE 6 (5 - 7); PROTEIN,URINE DIPSTICK 2+ (NEGATIVE); URINE UROBILINOGEN 0.2 mg/dL (0.2 - 1)
[2024-05-26 10:19] LABS: EPITHELIAL CELLS,URINE MANY /LPF; RBC,URINE >50 /HPF (0-5); WBC,URINE (MAN) 0-5 /HPF (0-5)
[2024-05-26] MEDS: METRONIDAZOLE 500MG/NS 100ML 100 ML IV SCH (10:19)
[2024-05-26 10:20] LABS: BACTERIA,URINE MODERATE /HPF; NITRITE,URINE POSITIVE (NEGATIVE)
[2024-05-26 10:28] LABS: SODIUM,URINE < 20 mmol/L
[2024-05-26 14:15] LABS: BASOPHILS % 0.2 % (0.0-1.0); EOSINOPHILS % 0.1 % (0.0-6.0); HEMATOCRIT 35.1 % (34.2-44.1); HEMOGLOBIN 12.2 g/dL (12.0-16.0); LYMPHOCYTES # (AUTO) 1.2 (1.0-3.2); LYMPHOCYTES % 5.8 % (18.0-39.1); MEAN CORPUSCULAR HGB CONC 34.8 g/dL (31-35); MEAN CORPUSCULAR VOLUME 86.2 fL (81-99); MONOCYTES # (AUTO) 1.4 (0.2-0.8); MONOCYTES % 6.5 % (4.4-11.3); NEUTROPHILS # (AUTO) 18.4 (2.1-6.9); NEUTROPHILS % 86.9 % (38.7-80.0); PLATELET COUNT 223 x10e3/uL (140-360); RED BLOOD COUNT 4.07 x10e6/uL (3.6-5.1); RED CELL DISTRIBUTION WIDTH 12.8 % (11.7-14.4); WHITE BLOOD COUNT 21.21 x10e3/uL (4.8-10.8)
[2024-05-26 14:34] LABS: ANION GAP 12.7 mmol/L (8-16); CALCIUM 8.9 mg/dL (8.4-10.2); CREATININE, SERUM 1.07 mg/dL (0.57-1.11); POTASSIUM 3.7 mmol/L (3.5-5.1)
[2024-05-26] MEDS: LEVETIRACETAM 500 MG TAB PO SCH (18:10)
[2024-05-26] MEDS: LISINOPRIL 10 MG TAB PO SCH (18:10)
[2024-05-26] MEDS: FUROSEMIDE 40 MG TAB PO SCH (18:11)
[2024-05-26] MEDS: APIXABAN 5 MG TABLET PO SCH (18:12)
[2024-05-26] MEDS: PAROXETINE HCL 20 MG TAB PO SCH (20:24)
[2024-05-26] MEDS: PRAVASTATIN 20 MG TAB PO SCH (20:25)
[2024-05-26] MEDS: SODIUM CHLORIDE 1 GM TAB PO SCH (20:25)
[2024-05-26] MEDS: TAMSULOSIN HCL 0.4 MG CAP PO SCH (20:25)
[2024-05-26] MEDS ORDERED: MELATONIN 3 MG TAB PO SCH (21:00)
[2024-05-27] VITALS (8 sets, daily range): BP systolic 147–198; BP diastolic 75–106; PULSE 72–100; RESP 18–20; TEMP 97.9–98.7; O2SAT 93–97
[2024-05-27] MEDS: HYDRALAZINE HCL 20 MG/ML VIAL IV PRN (00:40)
[2024-05-27 06:04] LABS: BASOPHILS % 0.2 % (0.0-1.0); EOSINOPHILS # (AUTO) 0.1 (0.0-0.4); EOSINOPHILS % 0.3 % (0.0-6.0); HEMATOCRIT 36.1 % (34.2-44.1); HEMOGLOBIN 12.4 g/dL (12.0-16.0); LYMPHOCYTES # (AUTO) 1.2 (1.0-3.2); LYMPHOCYTES % 6.7 % (18.0-39.1); MEAN CORPUSCULAR HEMOGLOBIN 29.7 pg (28-32); MEAN CORPUSCULAR HGB CONC 34.3 g/dL (31-35); MEAN CORPUSCULAR VOLUME 86.6 fL (81-99); MONOCYTES # (AUTO) 1.3 (0.2-0.8); MONOCYTES % 7.1 % (4.4-11.3); NEUTROPHILS # (AUTO) 14.9 (2.1-6.9); PLATELET COUNT 223 x10e3/uL (140-360); RED BLOOD COUNT 4.17 x10e6/uL (3.6-5.1); RED CELL DISTRIBUTION WIDTH 12.8 % (11.7-14.4); WHITE BLOOD COUNT 17.51 x10e3/uL (4.8-10.8)
[2024-05-27 06:28] LABS: ALBUMIN 3.4 g/dL (3.5-5.0); ALBUMIN/GLOBULIN RATIO 1.1 (0.8-2.0); ANION GAP 13.3 mmol/L (8-16); BILIRUBIN,TOTAL 0.8 mg/dL (0.2-1.2); CALCIUM 8.7 mg/dL (8.4-10.2); CREATININE, SERUM 0.83 mg/dL (0.57-1.11); MAGNESIUM 1.8 MG/DL (1.3-2.1); TOTAL PROTEIN 6.6 g/dL (6.5-8.1)
[2024-05-27 06:30] LABS: POTASSIUM 3.3 mmol/L (3.5-5.1)
[2024-05-27] MEDS: LEVOTHYROXINE SODIUM 125 MCG TAB PO SCH (08:26)
[2024-05-27] MEDS: ISOSORBIDE MONONITRATE 30 MG TAB CR PO SCH (08:27)
[2024-05-27] MEDS: FUROSEMIDE 40 MG TAB PO SCH (08:28)
[2024-05-27] MEDS: CLOPIDOGREL BISULFATE 75 MG TAB PO SCH (08:28)
[2024-05-27] MEDS: METHENAMINE HIPPURATE 1 GM PO SCH (08:31)
[2024-05-27] MEDS: POTASSIUM CHLORIDE 20 MEQ TAB CR PO ONE (17:05)
[2024-05-27] MEDS: LISINOPRIL 20 MG TAB PO SCH (17:05)
[2024-05-27] MEDS: LIDOCAINE 4% PATCH TP SCH (19:00)
[2024-05-27] MEDS: TRAMADOL HCL 50 MG TAB PO PRN (22:10)
[2024-05-28] VITALS (8 sets, daily range): BP systolic 123–208; BP diastolic 68–111; PULSE 61–96; RESP 16–20; TEMP 97.2–98.7; O2SAT 93–99
[2024-05-28] MEDS: POLYETHYLENE GLYCOL 3350 17 GM PACK PO STA (04:26)
[2024-05-28 05:51] LABS: BASOPHILS # (AUTO) 0.1 (0.0-0.1); BASOPHILS % 0.4 % (0.0-1.0); EOSINOPHILS # (AUTO) 0.1 (0.0-0.4); EOSINOPHILS % 0.9 % (0.0-6.0); HEMATOCRIT 32.9 % (34.2-44.1); HEMOGLOBIN 11.4 g/dL (12.0-16.0); LYMPHOCYTES # (AUTO) 1.1 (1.0-3.2); LYMPHOCYTES % 7.8 % (18.0-39.1); MEAN CORPUSCULAR HGB CONC 34.7 g/dL (31-35); MEAN CORPUSCULAR VOLUME 86.6 fL (81-99); MONOCYTES # (AUTO) 1.1 (0.2-0.8); MONOCYTES % 7.8 % (4.4-11.3); NEUTROPHILS # (AUTO) 11.2 (2.1-6.9); NEUTROPHILS % 82.6 % (38.7-80.0); PLATELET COUNT 209 x10e3/uL (140-360); RED CELL DISTRIBUTION WIDTH 13.1 % (11.7-14.4); WHITE BLOOD COUNT 13.52 x10e3/uL (4.8-10.8)
[2024-05-28] MEDS: LEVOTHYROXINE SODIUM 125 MCG TAB PO SCH (05:59)
[2024-05-28 06:18] LABS: BILIRUBIN,TOTAL 0.6 mg/dL (0.2-1.2); CALCIUM 8.5 mg/dL (8.4-10.2); CREATININE, SERUM 0.88 mg/dL (0.57-1.11); MAGNESIUM 1.9 MG/DL (1.3-2.1)
[2024-05-28] MEDS: POLYETHYLENE GLYCOL 3350 17 GM PACK PO SCH (08:33)
[2024-05-28] MEDS: METOCLOPRAMIDE HCL 10 MG/2ML VIAL IV SCH (08:33)
[2024-05-28] MEDS: MECLIZINE HCL 12.5 MG TAB PO PRN (12:52)
[2024-05-28 18:04] LABS: ANION GAP 15.3 mmol/L (8-16); CALCIUM 8.4 mg/dL (8.4-10.2); CREATININE, SERUM 1.09 mg/dL (0.57-1.11); POTASSIUM 4.3 mmol/L (3.5-5.1)
[2024-05-29] VITALS (10 sets, daily range): BP systolic 145–199; BP diastolic 80–95; PULSE 76–99; RESP 17–19; TEMP 97.6–98.6; O2SAT 95–97
[2024-05-29] MEDS: BISACODYL 10 MG SUPP PR STA (00:42)
[2024-05-29 05:48] LABS: BASOPHILS % 0.4 % (0.0-1.0); EOSINOPHILS # (AUTO) 0.2 (0.0-0.4); EOSINOPHILS % 2.1 % (0.0-6.0); HEMATOCRIT 34.3 % (34.2-44.1); HEMOGLOBIN 11.9 g/dL (12.0-16.0); LYMPHOCYTES # (AUTO) 1.2 (1.0-3.2); LYMPHOCYTES % 11.5 % (18.0-39.1); MEAN CORPUSCULAR HEMOGLOBIN 30.3 pg (28-32); MEAN CORPUSCULAR HGB CONC 34.7 g/dL (31-35); MEAN CORPUSCULAR VOLUME 87.3 fL (81-99); MONOCYTES # (AUTO) 0.8 (0.2-0.8); MONOCYTES % 7.8 % (4.4-11.3); NEUTROPHILS # (AUTO) 8.3 (2.1-6.9); NEUTROPHILS % 77.5 % (38.7-80.0); PLATELET COUNT 206 x10e3/uL (140-360); RED BLOOD COUNT 3.93 x10e6/uL (3.6-5.1); WHITE BLOOD COUNT 10.72 x10e3/uL (4.8-10.8)
[2024-05-29 06:37] LABS: ALBUMIN 3.2 g/dL (3.5-5.0); ALBUMIN/GLOBULIN RATIO 1.1 (0.8-2.0); ANION GAP 11.5 mmol/L (8-16); BILIRUBIN,TOTAL 0.5 mg/dL (0.2-1.2); CALCIUM 8.4 mg/dL (8.4-10.2); CREATININE, SERUM 0.88 mg/dL (0.57-1.11); MAGNESIUM 1.8 MG/DL (1.3-2.1); POTASSIUM 3.5 mmol/L (3.5-5.1); TOTAL PROTEIN 6.2 g/dL (6.5-8.1)
[2024-05-29 18:17] LABS: ANION GAP 15.2 mmol/L (8-16); CALCIUM 8.5 mg/dL (8.4-10.2); CREATININE, SERUM 0.88 mg/dL (0.57-1.11); POTASSIUM 4.2 mmol/L (3.5-5.1)
[2024-05-29] MEDS: AMLODIPINE BESYLATE 5 MG TAB PO ONE (19:29)
[2024-05-29] MEDS: SODIUM CHLORIDE 1 GM TAB PO SCH (22:26)
[2024-05-30] VITALS (8 sets, daily range): BP systolic 156–198; BP diastolic 89–104; PULSE 84–100; RESP 18–20; TEMP 97.6–98.8; O2SAT 96–98
[2024-05-30 06:00] LABS: BASOPHILS # (AUTO) 0.1 (0.0-0.1); BASOPHILS % 0.4 % (0.0-1.0); EOSINOPHILS # (AUTO) 0.3 (0.0-0.4); EOSINOPHILS % 2.5 % (0.0-6.0); HEMATOCRIT 33.6 % (34.2-44.1); HEMOGLOBIN 11.6 g/dL (12.0-16.0); LYMPHOCYTES # (AUTO) 1.1 (1.0-3.2); LYMPHOCYTES % 9.9 % (18.0-39.1); MEAN CORPUSCULAR HEMOGLOBIN 30.1 pg (28-32); MEAN CORPUSCULAR HGB CONC 34.5 g/dL (31-35); MEAN CORPUSCULAR VOLUME 87.3 fL (81-99); MONOCYTES % 8.4 % (4.4-11.3); NEUTROPHILS % 78.2 % (38.7-80.0); PLATELET COUNT 227 x10e3/uL (140-360); RED BLOOD COUNT 3.85 x10e6/uL (3.6-5.1); RED CELL DISTRIBUTION WIDTH 12.9 % (11.7-14.4); WHITE BLOOD COUNT 11.48 x10e3/uL (4.8-10.8)
[2024-05-30 06:19] LABS: ALBUMIN 3.2 g/dL (3.5-5.0); ANION GAP 12.8 mmol/L (8-16); BILIRUBIN,TOTAL 0.6 mg/dL (0.2-1.2); CALCIUM 8.8 mg/dL (8.4-10.2); CREATININE, SERUM 0.82 mg/dL (0.57-1.11); POTASSIUM 3.8 mmol/L (3.5-5.1); TOTAL PROTEIN 6.4 g/dL (6.5-8.1)
[2024-05-30 06:33] LABS: CHOL/HDL RATIO 2.1 (3.0-3.6)
[2024-05-30] MEDS: AMLODIPINE BESYLATE 5 MG TAB PO SCH (09:47)
[2024-05-30] MEDS: CITRATE OF MAGNESIA 300ML BOTTLE PO ONE (12:00)
[2024-05-31] VITALS (9 sets, daily range): BP systolic 125–170; BP diastolic 75–101; PULSE 79–106; RESP 17–20; TEMP 98.1–99.4; O2SAT 94–98
[2024-05-31] MEDS: BISACODYL 10 MG SUPP PR ONE ×2 (02:59→14:28)
[2024-05-31 05:55] LABS: BASOPHILS % 0.3 % (0.0-1.0); EOSINOPHILS # (AUTO) 0.2 (0.0-0.4); EOSINOPHILS % 1.9 % (0.0-6.0); HEMATOCRIT 33.5 % (34.2-44.1); HEMOGLOBIN 11.4 g/dL (12.0-16.0); LYMPHOCYTES # (AUTO) 1.1 (1.0-3.2); LYMPHOCYTES % 9.2 % (18.0-39.1); MEAN CORPUSCULAR VOLUME 88.2 fL (81-99); MONOCYTES # (AUTO) 0.8 (0.2-0.8); MONOCYTES % 7.3 % (4.4-11.3); NEUTROPHILS # (AUTO) 9.2 (2.1-6.9); NEUTROPHILS % 80.4 % (38.7-80.0); PLATELET COUNT 243 x10e3/uL (140-360); RED CELL DISTRIBUTION WIDTH 13.1 % (11.7-14.4); WHITE BLOOD COUNT 11.49 x10e3/uL (4.8-10.8)
[2024-05-31 06:20] LABS: ANION GAP 8.4 mmol/L (8-16); CALCIUM 9.2 mg/dL (8.4-10.2); CREATININE, SERUM 0.85 mg/dL (0.57-1.11); POTASSIUM 4.4 mmol/L (3.5-5.1)
[2024-05-31] MEDS: CITRATE OF MAGNESIA 300ML BOTTLE PO ONE (10:45)
[2024-05-31] MEDS: LACTULOSE SYRUP 20 GM/30 ML UDC PO PRN (12:21)
[2024-05-31] MEDS ORDERED: REGLAN5 MG PO (16:22)
[2024-05-31] MEDS ORDERED: FUROSEMIDE40 MG PO (16:22)
[2024-05-31] MEDS ORDERED: SODIUM CHLORI1000 MG PO (16:22)
[2024-05-31] MEDS ORDERED: METRONIDAZOLE500 MG PO (16:22)
[2024-05-31] MEDS ORDERED: LEVOFLOXACIN250 MG PO (16:22)
[2024-05-31] MEDS ORDERED: LINZESS145 MCG PO (16:22)
[2024-05-31] MEDS ORDERED: NORVASC5 MG PO (16:22)
[2024-05-31] MEDS ORDERED: LISINOPRIL20 MG PO (16:22)
[2024-06-01 00:21] VITALS: BP 149/70; PULSE 90
[2024-06-01] MEDS: SODIUM CHLORIDE 0.9% 250ML 250 ML ONE (00:44)
[2024-06-01 03:37] VITALS: BP 157/82; PULSE 86; RESP 18; TEMP 98.1; O2SAT 99
[2024-06-01 08:00] VITALS: BP 162/83; PULSE 75; RESP 17; TEMP 98.4; O2SAT 95
[2024-06-01 08:08] VITALS: BP 162/83; PULSE 75; RESP 17; TEMP 98.4; O2SAT 95
[2024-06-01 08:27] LABS: BASOPHILS % 0.2 % (0.0-1.0); EOSINOPHILS # (AUTO) 0.1 (0.0-0.4); EOSINOPHILS % 1.2 % (0.0-6.0); HEMATOCRIT 32.8 % (34.2-44.1); HEMOGLOBIN 10.9 g/dL (12.0-16.0); LYMPHOCYTES % 9.8 % (18.0-39.1); MEAN CORPUSCULAR HGB CONC 33.2 g/dL (31-35); MEAN CORPUSCULAR VOLUME 90.4 fL (81-99); MONOCYTES # (AUTO) 0.7 (0.2-0.8); MONOCYTES % 7.5 % (4.4-11.3); NEUTROPHILS % 80.4 % (38.7-80.0); PLATELET COUNT 225 x10e3/uL (140-360); RED BLOOD COUNT 3.63 x10e6/uL (3.6-5.1); RED CELL DISTRIBUTION WIDTH 13.3 % (11.7-14.4)
[2024-06-01 08:43] LABS: ANION GAP 12.9 mmol/L (8-16); CALCIUM 8.3 mg/dL (8.4-10.2); CREATININE, SERUM 0.8 mg/dL (0.57-1.11); POTASSIUM 3.9 mmol/L (3.5-5.1)
[2024-06-01 12:31] VITALS: BP 134/77; PULSE 82; RESP 17; TEMP 98.6; O2SAT 94
== END 2024-06-01 13:39 | disposition home health service (06) | DRG 644 ==
LOC: ER 14:46 → ERHOLD 18:02 → MED/SURG3 21:50
PROVIDERS: ADMIT Internal Medicine; ATTEND Internal Medicine
DX: E22.2 Syndrome of inappropriate secretion of antidiuretic hormone (principal); A04.9 Bacterial intestinal infection, unspecified; N39.0 Urinary tract infection, site not specified; N17.9 Acute kidney failure, unspecified; K51.90 Ulcerative colitis, unspecified, without complications; T50.1X5A Adverse effect of loop [high-ceiling] diuretics, initial encounter; T43.225A Adverse effect of selective serotonin reuptake inhibitors, initial encounter; K59.04 Chronic idiopathic constipation; R13.10 Dysphagia, unspecified; R07.89 Other chest pain; R07.2 Precordial pain; E87.6 Hypokalemia; D64.9 Anemia, unspecified; I10 Essential (primary) hypertension; I48.0 Paroxysmal atrial fibrillation; I25.10 Atherosclerotic heart disease of native coronary artery without angina pectoris; E03.9 Hypothyroidism, unspecified; G40.909 Epilepsy, unspecified, not intractable, without status epilepticus; E78.5 Hyperlipidemia, unspecified; M19.91 Primary osteoarthritis, unspecified site; M06.9 Rheumatoid arthritis, unspecified; N32.81 Overactive bladder; G89.29 Other chronic pain; I45.10 Unspecified right bundle-branch block; E66.9 Obesity, unspecified; Z68.30 Body mass index [BMI] 30.0-30.9, adult; Z11.52 Encounter for screening for COVID-19; Z86.73 Personal history of transient ischemic attack (TIA), and cerebral infarction without residual deficits; Z86.711 Personal history of pulmonary embolism; Z86.718 Personal history of other venous thrombosis and embolism; Z79.01 Long term (current) use of anticoagulants; Z79.899 Other long term (current) drug therapy; Z79.02 Long term (current) use of antithrombotics/antiplatelets; Z90.49 Acquired absence of other specified parts of digestive tract; Z97.8 Presence of other specified devices; Y92.009 Unspecified place in unspecified non-institutional (private) residence as the place of occurrence of the external cause
CPT/HCPCS: 36415; 71045; 71250; 74018; 74177; 80048; 80053; 80061; 81001; 82140; 82948; 83690; 83735; 83930; 83935; 84295; 84300; 84443; 84484; 85025; 87086; 93005; 94799; 99252; 99284; J0360; J0696; J2405; J2470; J2765; J7040; J7050; Q9967; U0002

== ENCOUNTER → 2024-06-23 | Day surgery (SDC) | payer MEDICARE ==
[2024-06-20 09:41] LABS: BASOPHILS % 0.4 % (0.0-1.0); EOSINOPHILS # (AUTO) 0.2 (0.0-0.4); EOSINOPHILS % 3.5 % (0.0-6.0); HEMATOCRIT 34.4 % (34.2-44.1); HEMOGLOBIN 11.9 g/dL (12.0-16.0); LYMPHOCYTES % 20.2 % (18.0-39.1); MEAN CORPUSCULAR HEMOGLOBIN 31.2 pg (28-32); MEAN CORPUSCULAR HGB CONC 34.6 g/dL (31-35); MEAN CORPUSCULAR VOLUME 90.1 fL (81-99); MONOCYTES # (AUTO) 0.6 (0.2-0.8); MONOCYTES % 11.7 % (4.4-11.3); NEUTROPHILS # (AUTO) 3.1 (2.1-6.9); PLATELET COUNT 188 x10e3/uL (140-360); RED BLOOD COUNT 3.82 x10e6/uL (3.6-5.1); RED CELL DISTRIBUTION WIDTH 14.2 % (11.7-14.4); WHITE BLOOD COUNT 4.89 x10e3/uL (4.8-10.8)
[~2024-06-23] MED LIST changes: +CEPHALEXIN250 M1 PO; +GEMTESA75 MG; +HYDRALAZINE HCL50 MG PO; +LEVOFLOXACIN250 MG PO; +LIDOCAINE HCL 2% LOCAL INJ 5 ML SDV VIAL INJ ONE; +LINZESS145 MCG PO; +LISINOPRIL20 MG PO; +METOCLOPRAM5 MG/5 ML PO; +METRONIDAZOLE500 MG PO; +MORPHINE 11 MG/2 ML IM/IV; +MULTIVITAMIN PO; +PANTOPRAZOLE SO40 MG PO; +PROPOFOL IV EMULSION 10 MG/ML 50 ML VIAL IV ONE; +REGLAN5 MG PO; +SODIUM CHLORI1000 MG PO; +THERACRAN PO; +VESICARE5 MG PO; +VITAMIN D3 MA125 MCG PO; +VITAMIN D350 MCG PO
[2024-06-23] MEDS: LACTATED RINGER'S 1,000 ML ONE (09:18)
[2024-06-23 10:30] VITALS: BP 140/82; PULSE 77; RESP 15; TEMP 97.2; O2SAT 96
== END | disposition home or self-care (01) ==
LOC: ENDO 08:09
PROVIDERS: ATTEND Internal Medicine Gastroenterology
DX: K22.2 Esophageal obstruction (principal); K21.00 Gastro-esophageal reflux disease with esophagitis, without bleeding; K44.9 Diaphragmatic hernia without obstruction or gangrene; K29.50 Unspecified chronic gastritis without bleeding; K31.89 Other diseases of stomach and duodenum; K59.00 Constipation, unspecified; R03.0 Elevated blood-pressure reading, without diagnosis of hypertension; Z71.3 Dietary counseling and surveillance; Z68.27 Body mass index [BMI] 27.0-27.9, adult; I12.9 Hypertensive chronic kidney disease with stage 1 through stage 4 chronic kidney disease, or unspecified chronic kidney disease; N18.9 Chronic kidney disease, unspecified; E78.5 Hyperlipidemia, unspecified; I25.10 Atherosclerotic heart disease of native coronary artery without angina pectoris; Z95.5 Presence of coronary angioplasty implant and graft; Z86.73 Personal history of transient ischemic attack (TIA), and cerebral infarction without residual deficits; Z95.0 Presence of cardiac pacemaker; E03.9 Hypothyroidism, unspecified; F03.90 Unspecified dementia, unspecified severity, without behavioral disturbance, psychotic disturbance, mood disturbance, and anxiety; F32.A Depression, unspecified; M19.91 Primary osteoarthritis, unspecified site; M54.9 Dorsalgia, unspecified; I45.10 Unspecified right bundle-branch block; Z74.01 Bed confinement status; Z01.812 Encounter for preprocedural laboratory examination; Z79.899 Other long term (current) drug therapy; Z79.82 Long term (current) use of aspirin; Z79.01 Long term (current) use of anticoagulants; Z79.02 Long term (current) use of antithrombotics/antiplatelets
CPT/HCPCS: 36415; 43239; 43450; 85025; 88305; 88342; J2001; J2470; J2704; J7121